=== PATIENT | male | born 1970 | race Two or more races ===

== ENCOUNTER 2023-10-30 04:34 | Day surgery (SDC) | payer BC ==
[2023-10-27 09:21] VITALS: BMI 28.9
[2023-10-30] MEDS ORDERED: MIDAZOLAM HCL 2 MG/2 ML SINGLE DOSE VIAL ONE (15:28)
[2023-10-30] MEDS ORDERED: ONDANSETRON 4 MG/2 ML VIAL ONE ×2 (15:33)
[2023-10-30] MEDS ORDERED: ROCURONIUM BROMIDE 50 MG/5 ML SYRINGE ONE (15:40)
[2023-10-30 17:15] VITALS: RESP 17
[2023-10-30 17:40] VITALS: TEMP 97.7
[2023-10-30 18:45] VITALS: BP 143/78; PULSE 60
== END 2023-10-30 17:50 | disposition home or self-care (01) ==
LOC: JASU-SURG 04:34
PROVIDERS: ATTEND Urology
PROC: 0TF3XZZ Fragmentation in Right Kidney Pelvis, External Approach (ICD-10-PCS; principal; 2023-10-30 15:30)
DX: N20.0 Calculus of kidney (principal)